=== PATIENT | male | born 1930 | race Caucasian/White ===

== ENCOUNTER 2018-12-23 06:08 | Inpatient (IN) | payer MEDICARE, OTHER ==
[2018-12-23] MEDS: IPRATROPIUM (NEB) 0.5 MG/2.5 ML AMP INH (06:24)
[2018-12-23] MEDS: ALBUTEROL 0.5% (NEB) 2.5 MG/0.5 ML AMP INH (06:24)
[2018-12-23 06:40] LABS: MODE AEROSOL MASK; MetHgb Venous 0.4 %; Sample Type Blood venous; Site VENOUS LINE; Venous COHb 0.2 %; Venous Fraction OxyHgb 37.6 %; Venous Oxygen Sat 37.8 mmHG (55.0-75.0); Venous Total Hemglobin 14.8 g/dl
[2018-12-23 06:49] LABS: ADD MAN DIFF? NO
[2018-12-23 06:51] LABS: BASOPHILS % 0.3 % (0.0-2.0); EOSINOPHILS % 0.2 % (0.0-7.0); HEMATOCRIT 43.6 % (42.0-52.0); HEMOGLOBIN 14.3 g/dl (14.0-18.0); LYMPHOCYTES # 0.7 10^3/ul (0.8-2.9); LYMPHOCYTES % 5.4 % (15.0-51.0); MEAN CORPUSCULAR HEMOGLOBIN 31.2 pg (29.0-33.0); MEAN CORPUSCULAR HGB CONC 32.8 g/dl (32.0-37.0); MEAN PLATELET VOLUME 10.4 fl (7.4-10.4); MONOCYTE # 1.1 10^3/ul (0.3-0.9); MONOCYTES % 8.7 % (0.0-11.0); NEUTROPHIL # 10.4 10^3/ul (1.6-7.5); NEUTROPHILS % 84.7 % (39.0-77.0); PLATELET COUNT 371 10^3/UL (140-415); RED BLOOD COUNT 4.59 10^6/ul (4.70-6.10); RED CELL DISTRIBUTION WIDTH 13.7 % (11.5-14.5)
[2018-12-23 06:51] LABS: WHITE BLOOD COUNT 12.3 10^3/ul (4.8-10.8)
[2018-12-23 07:12] LABS: ALANINE AMINOTRANSFERASE 7 IU/L (13-69); ALBUMIN 3.9 g/dl (3.3-4.9); ALBUMIN/GLOBULIN RATIO 1.11; ALKALINE PHOSPHATASE 81 IU/L (42-121); ANION GAP 12 (5-13); ASPARTATE AMINO TRANSFERASE 32 IU/L (15-46); BILIRUBIN,INDIRECT 0.8 mg/dl (0-1.1); BILIRUBIN,TOTAL 0.8 mg/dl (0.2-1.3); BLOOD UREA NITROGEN 12 mg/dl (7-20); CALCIUM 9.6 mg/dl (8.4-10.2); CARBON DIOXIDE 30 mmol/L (21-31); CHLORIDE 99 mmol/L (97-110); CREATININE 0.76 mg/dl (0.61-1.24); GLUCOSE 130 mg/dl (70-220); SODIUM 141 mmol/L (135-144); TOTAL PROTEIN 7.4 g/dl (6.1-8.1)
[2018-12-23 07:20] LABS: INR 0.97
[2018-12-23 07:21] LABS: PARTIAL THROMBOPLASTIN TIME 28.9 Sec (23.0-35.0)
[2018-12-23] MEDS: CEFEPIME 2GM/50 ML (PMX) 50 ML IVPB (07:21)
[2018-12-23] MEDS: SODIUM CHLORIDE 0.9% 1L BAG IV* ×2 (07:21→07:32)
[2018-12-23] MEDS: METHYLPREDNISOLONE 125 MG INJ IV ×3 (07:21→22:06)
[2018-12-23 07:23] LABS: B-TYPE NATRIURETIC PEPTIDE 3140 PG/ML (0-450); TROPONIN-I 0.078 ng/ml (0.000-0.120)
[2018-12-23] MEDS: KETAMINE HCL (50 MG/ML) 1ml syringe IV (07:23)
[2018-12-23 07:32] LABS: LACTIC ACID 3.3 mmol/L (0.5-2.0)
[2018-12-23] MEDS: ONDANSETRON 4 MG INJ IV (08:10)
[2018-12-23] MEDS: VANCOMYCIN 1 GM (PMX) 250 ML IVPB (08:11)
[2018-12-23] MEDS ORDERED: ACETAMINOPHEN 325 MG TAB PO (10:30)
[2018-12-23] MEDS ORDERED: NACL 0.9% 3 ML SYG IV (10:30)
[2018-12-23] MEDS ORDERED: VANCOMYCIN IV PER PHARMACY XX (10:30)
[2018-12-23] MEDS ORDERED: MAGNESIUM HYDROXIDE 30ML CUP PO (10:30)
[2018-12-23] MEDS ORDERED: ONDANSETRON 4 MG INJ IV (10:30)
[2018-12-23] MEDS ORDERED: DOCUSATE SODIUM 100 MG CAP PO (10:30)
[2018-12-23 11:42] LABS: LACTIC ACID 3.4 mmol/L (0.5-2.0)
[2018-12-23] MEDS: LEVALBUTEROL (NEB) 1.25 MG/0.5 ML AMP HHN ×3 (12:59→19:50)
[2018-12-23] MEDS: IPRATROPIUM (NEB) 0.5 MG/2.5 ML AMP HHN ×3 (12:59→19:50)
[2018-12-23] MEDS: SOD CHLORIDE 0.9% 1,000 ML IV ×2 (13:49→23:21)
[2018-12-23] MEDS ORDERED: BISACODYL 30 ML ENEMA PR (15:30)
[2018-12-23] MEDS ORDERED: GUAIFENESIN/DM 5ML CUP PO (15:30)
[2018-12-23] MEDS: MAGNESIUM HYDROXIDE 30ML CUP PO (17:47)
[2018-12-23] MEDS: BISACODYL (EC) 5 MG TAB PO (17:47)
[2018-12-23] MEDS: DOCUSATE SODIUM 100 MG CAP PO (20:55)
[2018-12-23] MEDS: FAMOTIDINE 20 MG TAB PO (20:55)
[2018-12-23] MEDS: CEFEPIME 1GM/50 ML (PMX) 50 ML IVPB (20:56)
[2018-12-23] MEDS: SENNA TAB PO (20:56)
[2018-12-24] MEDS: LEVALBUTEROL (NEB) 1.25 MG/0.5 ML AMP HHN ×4 (02:26→13:14)
[2018-12-24] MEDS: METHYLPREDNISOLONE 125 MG INJ IV ×2 (05:31→14:00)
[2018-12-24] MEDS: SOD CHLORIDE 0.9% 1,000 ML IV (05:32)
[2018-12-24 06:34] LABS: ABNORMAL IP MESSAGE 1; HEMATOCRIT 32.7 % (42.0-52.0); HEMOGLOBIN 10.6 g/dl (14.0-18.0); MEAN CORPUSCULAR HEMOGLOBIN 30.8 pg (29.0-33.0); MEAN CORPUSCULAR HGB CONC 32.4 g/dl (32.0-37.0); MEAN CORPUSCULAR VOLUME 95.1 fl (82.0-101.0); MEAN PLATELET VOLUME 10.2 fl (7.4-10.4); PLATELET COUNT 282 10^3/UL (140-415); POSITIVE DIFF @See below; RED BLOOD COUNT 3.44 10^6/ul (4.70-6.10); RED CELL DISTRIBUTION WIDTH 13.6 % (11.5-14.5)
[2018-12-24 06:34] LABS: WHITE BLOOD COUNT 12.9 10^3/ul (4.8-10.8)
[2018-12-24 06:50] LABS: HEMOGLOBIN A1C 5.2 % (0-5.9)
[2018-12-24 06:57] LABS: ALANINE AMINOTRANSFERASE 14 IU/L (13-69); ALBUMIN 2.8 g/dl (3.3-4.9); ALKALINE PHOSPHATASE 63 IU/L (42-121); ANION GAP 6 (5-13); ASPARTATE AMINO TRANSFERASE 17 IU/L (15-46); BILIRUBIN,INDIRECT 0.2 mg/dl (0-1.1); BILIRUBIN,TOTAL 0.2 mg/dl (0.2-1.3); BLOOD UREA NITROGEN 17 mg/dl (7-20); CALCIUM 8.6 mg/dl (8.4-10.2); CARBON DIOXIDE 31 mmol/L (21-31); CHLORIDE 102 mmol/L (97-110); CHOL/HDL RATIO 3.5 RATIO; CHOLESTEROL 135 mg/dl (100-200); CREATININE 0.66 mg/dl (0.61-1.24); GLUCOSE 123 mg/dl (70-220); HDL CHOLESTEROL 38 mg/dl (31-75); LDL CHOLESTEROL,CALCULATED 85 mg/dl; MAGNESIUM 2.1 mg/dl (1.7-2.5); PHOSPHORUS 2.6 mg/dl (2.5-4.9); POTASSIUM 3.6 mmol/L (3.5-5.1); SODIUM 139 mmol/L (135-144); TOTAL PROTEIN 5.6 g/dl (6.1-8.1); TRIGLYCERIDES 58 mg/dl (0-149)
[2018-12-24 07:04] LABS: ADD MAN DIFF? YES
[2018-12-24] MEDS: IPRATROPIUM (NEB) 0.5 MG/2.5 ML AMP HHN ×2 (08:55→13:14)
[2018-12-24] MEDS: ENOXAPARIN 40 MG/0.4 ML SYG SC (09:00)
[2018-12-24] MEDS: DOCUSATE SODIUM 100 MG CAP PO (09:00)
[2018-12-24] MEDS: SENNA TAB PO (09:00)
[2018-12-24 10:13] LABS: BAND NEUTROPHILS #M 1.8 10^3/ul (0.0-0.6); BAND NEUTROPHILS % (M) 14 % (0-4); BASOPHIL #M 0.1 10^3/ul (0.0-0.0); BASOPHILS % (M) 1 % (0-2); GIANT THROMBO% (M) 2 % (0-0); LYMPHOCYTES % (M) 8 % (15-51); MONOCYTE #M 0.1 10^3/ul (0.3-0.9); MONOCYTES % (M) 1 % (0-11); PLATELET ESTIMATE NORMAL; POIKILOCYTOSIS 1+ (0-0); SEGMENTED NEUTROPHILS (M) % 76 % (39-77); SMUDGE%M 9 % (0-0)
[2018-12-24] MEDS: CEFEPIME 1GM/50 ML (PMX) 50 ML IVPB (10:46)
[2018-12-24] MEDS: FAMOTIDINE 20 MG TAB PO (10:49)
[2018-12-24] MEDS: VANCOMYCIN 750 MG (PMX) 250 ML IVPB (11:36)
[2018-12-25] MEDS ORDERED: VANCOMYCIN 750 MG (PMX) 250 ML IVPB (11:00)
== END 2018-12-24 16:27 | DRG 871 ==
LOC: E/R 06:08 → 6WM 07:54
DX: A41.9 Sepsis, unspecified organism (principal); J18.9 Pneumonia, unspecified organism; J44.1 Chronic obstructive pulmonary disease with (acute) exacerbation; E87.2 Acidosis; J84.9 Interstitial pulmonary disease, unspecified; Z99.81 Dependence on supplemental oxygen; R65.20 Severe sepsis without septic shock; N40.0 Benign prostatic hyperplasia without lower urinary tract symptoms; Y95 Nosocomial condition; K59.00 Constipation, unspecified; Z87.891 Personal history of nicotine dependence
CPT/HCPCS: 36415; 71045; 80053; 80061; 82803; 83036; 83605; 83735; 83880; 84100; 84484; 85025; 85610; 85730; 87040-91; 87086; 93005; 93306; 94640; 94644; 94664; 96365; 96375; 99291-25